=== PATIENT | male | born 1960 | race Caucasian/White ===

== ENCOUNTER 2017-03-23 07:55 | Day surgery (SDC) | payer BC ==
[~2017-03-23 07:55] MED LIST: Lactated Ringers 1,000 ML IV SCH
[2017-03-23] MEDS ORDERED: Propofol 200 MG/20 ML SDV ONE (08:55)
[2017-03-23] MEDS ORDERED: fentaNYL 100 MCG/2 ML SDV ONE (08:55)
[2017-03-23 11:03] VITALS: BP 127/79
--- NOTE | 2017-03-23 15:54 | OR ---
SURGERY DATE: 03/23/2017. REFERRING PROVIDER: SHIVANI Bird. PRE-OPERATIVE DIAGNOSES: 1. Gastroesophageal reflux disease. 2. Dysphagia without regurgitation. 3. Questionable stricture. The patient's last esophagogastroduodenoscopy was 2008. POST-OPERATIVE DIAGNOSES: 1. Some minimal gastritis and lower esophagitis. Antral biopsies taken x2 bites. 2. Mild lower esophageal stricture noted at the GE junction. This did seem to be somewhat variable and would come and go. This was balloon dilated to 15 mm. 3. Mild ring-like appearance to the esophagus. Cold biopsy x2 bites taken to look for the eosinophilic esophagitis. PROCEDURE: Esophagogastroduodenoscopy with cold biopsies x2 sites and balloon dilatation of lower esophageal stricture. SURGEON: James Loera M.D. ANESTHESIA: Monitored anesthesia care. DESCRIPTION OF OPERATION: Mario is a 57-year-old male who was brought to the endoscope suite after discussion of risks and benefits (including but not limited to reaction to medication, bleeding, infection, aspiration, perforation). Informed consent was obtained for monitored anesthesia care and esophagogastroduodenoscopy along with possible biopsy and/or dilatation. Preprocedure exam including oral cavity was unremarkable. IV, oxygen, and monitors were placed. The patient was placed in the left lateral position and sedation was administered. A bite block was placed gently and scope lightly lubricated and passed through the bite block and over the tongue. Hypopharynx and vocal cords were visualized and unremarkable. Scope was passed through the cricopharynx and into the esophagus. The scope was then passed through the distal esophagus and the GE junction was visualized and photographed. GE junction was remarkable for mild variable stricture to the lower esophagus near or just above the GE junction. This was later dilated to 15 mm using balloon dilatation. This was done at the end of the procedure on the way out. The scope was advanced into the stomach and gastric white was suctioned. Pylorus was identified and intubated and then the scope was advanced to the third portion of the duodenum. The second and third portions of duodenum were unremarkable. Duodenal bulb was visualized and was unremarkable. The pylorus and the antrum did reveal some minimal gastritis. Cold biopsies were taken for H. pylori testing. The scope was then retroflexed to visualize the angularis, fundus, body, and cardia. These were remarkable for some minimal gastritis as well. The esophagus was closely visualized during withdrawal all the way to the posterior pharynx. Cold biopsy x2 bites taken from the midesophagus to check for eosinophilic esophagitis. The esophagus did have a mild ring-like appearance to it. The stomach was desufflated of air and then the scope was slowly withdrawn, and the esophagus was closely visualized during withdrawal all the way into the posterior pharynx. In the upper esophagus there was an area of heterotopic type mucosa. Cold biopsy x2 bites was taken of this area and sent for path. The patient tolerated the procedure well and went to recovery in stable condition. The patient was monitored until at baseline status. Findings and discharge instructions were reviewed and the patient was discharged in good condition. COMPLICATIONS: None. TOTAL TIME: 16 minutes. ESTIMATED BLOOD LOSS: About 1 mL. RECOMMENDATIONS/FOLLOW-UP: Await results of Path report. I would like the patient to start omeprazole 20 mg once a day, to treat the minimal gastritis and esophagitis noted. This may also reduce any spasm that may be present at the lower esophageal sphincter. If symptoms continue, may need to consider possibility of achalasia. I would like to kindly thank SHIVANI Bird for this referral. DMB: 03/23/2017 12:01:11 MODL: 03/23/2017 15:34:44 /[id number] BARBARA
== END 2017-03-23 11:20 | disposition home or self-care (01) ==
LOC: VM.SDS 07:55
PROVIDERS: ATTEND Family Medicine
DX: K20.9 Esophagitis, unspecified (principal); D72.1 Eosinophilia; I10 Essential (primary) hypertension; K21.9 Gastro-esophageal reflux disease without esophagitis; Z98.890 Other specified postprocedural states; Z79.899 Other long term (current) drug therapy; Z79.82 Long term (current) use of aspirin; E78.5 Hyperlipidemia, unspecified
CPT/HCPCS: 43239; 43249; J2704; J3010; J7120

== ENCOUNTER 2024-09-05 09:38 | Day surgery (SDC) | payer BC, MEDICARE ==
[2024-09-05] MEDS: Lactated Ringers 1,000 ML IV SCH (10:04)
[2024-09-05] MEDS ORDERED: Propofol 200 MG/20 ML SDV ONE ×2 (11:04→12:53)
[2024-09-05] MEDS ORDERED: fentaNYL 100 MCG/2 ML SDV ONE (11:04)
[2024-09-05 13:47] VITALS: BP 124/78; PULSE 66
== END 2024-09-05 14:07 | disposition home or self-care (01) ==
LOC: VM.SDS 09:38
PROVIDERS: ATTEND Family Medicine
DX: Z12.11 Encounter for screening for malignant neoplasm of colon (principal); K63.5 Polyp of colon; K57.30 Diverticulosis of large intestine without perforation or abscess without bleeding; Z86.0100 Personal history of colon polyps, unspecified; K21.9 Gastro-esophageal reflux disease without esophagitis; E78.5 Hyperlipidemia, unspecified; Z79.899 Other long term (current) drug therapy
CPT/HCPCS: 00811; 88305; J2704; J3010; J7120